=== PATIENT | female | born 1940 ===

== ENCOUNTER 2024-04-23 12:45 | Inpatient (IN) | payer OTHER ==
[~2024-04-23] VITALS: Ht 152.4 cm; Wt 59.0 kg
[2024-04-23] MEDS ORDERED: DEXILANT60 MG PO (14:10)
[2024-04-23] MEDS ORDERED: PROZAC40 MG PO (14:10)
[2024-04-23] MEDS ORDERED: SYNTHROID50 MCG PO (14:10)
[2024-04-23] MEDS ORDERED: ROSUVASTATIN CA10 MG PO (14:11)
[2024-04-23] MEDS ORDERED: WELLBUTRIN SR150 MG PO (14:11)
[2024-04-23] MEDS ORDERED: NORVASC5 MG PO (14:11)
[2024-04-23] MEDS ORDERED: CLONAZEPAM1 MG PO (14:11)
[2024-04-23] MEDS ORDERED: RESTASIS MULTI5.5 ML OP (14:12)
[2024-04-23 14:19] VITALS: BP 126/83
[2024-05-03] MEDS ORDERED: CLONAZEPAM0.25 MG (10:56)
[2024-05-03] MEDS ORDERED: NORVASC2.5 MG (10:56)
[2024-05-03] MEDS ORDERED: CLINDAMYCIN PHOSPHATE 150 MG/ML (900mg) ONE (16:36)
[2024-05-03] MEDS ORDERED: GENTAMICIN SULFATE 40 MG/ML VIAL ONE (16:37)
[2024-05-03] MEDS ORDERED: DIPHENHYDRAMINE HCL 50 MG/ML VIAL 1ML ONE (20:23)
[2024-05-03] MEDS ORDERED: CIPROFLOXACIN IN 5 % DEXTROSE 400 MG/200 ML PIGGYBAG IV SCH (20:50)
[2024-05-03] MEDS ORDERED: FAMOTIDINE/PF 20 MG/2 ML VIAL IV SCH (21:00)
[2024-05-03] MEDS ORDERED: METRONIDAZOLE/SODIUM CHLORIDE 500 MG/100 ML PIGGYBACK IV SCH (21:00)
[2024-05-03 22:38] LABS: ABG PH 7.453 (7.35-7.45); ABG PO2 382.5 mmHg (80-100); ABG pCO2 31.1 mmHg (35-45); BASE EXCESS -1.5 mmol/l; BICARBONATE 21.3 mmol/l (23-25); Tco2 22.2 mmol/l
[2024-05-03] MEDS ORDERED: hydrALAZINE HCL 20 MG VIAL ONE (22:43)
[2024-05-03 22:47] LABS: allen test SATISFACTORY; o2 100 %; puncture site RADIAL LEFT
[2024-05-03] MEDS ORDERED: LABETALOL HCL 100 MG/20 ML ML IV STA (23:37)
[2024-05-03] MEDS ORDERED: FAMOTIDINE/PF 20 MG/10 ML SYRINGE IV STA (23:40)
[2024-05-03] MEDS ORDERED: ENALAPRILAT DIHYDRATE 1.25 MG/ML VIAL IV PRN (23:45)
[2024-05-03] MEDS ORDERED: MORPHINE SULFATE 4 MG/ML CARTRIDGE IV PRN (23:45)
[2024-05-04 00:25] LABS: HEMATOCRIT 41.6 % (36.0-45.00); HEMOGLOBIN 13.3 g/dL (12.0-15.00); MEAN CELL VOLUME 87.7 fL (80.00-100.00); MEAN CORPUSCULAR HEMOGLOBIN 27.9 pg (27.00-32.0); MEAN CORPUSCULAR HGB CONC 31.9 g/dl (32.0-36.0); PLATELET COUNT 253 K/uL (150-450); RED BLOOD COUNT 4.74 M/uL (4.00-6.00); RED CELL DISTRIBUTION WIDTH 16.4 % (11.5-14.5)
[2024-05-04 00:36] LABS: CREATININE SERUM 0.81 mg/dL (0.55-1.02); GFR 67.69; MAGNESIUM 1.9 mg/dL (1.8-2.4); PHOSPHOROUS 3.1 mg/dL (2.5-4.9); POTASSIUM 3.81 mEq/L (3.5-5.1)
[2024-05-04] MEDS ORDERED: LORazepam 2 MG/ML VIAL IV ONE (04:30)
[2024-05-04 07:28] LABS: HEMATOCRIT 36.8 % (36.0-45.00); HEMOGLOBIN 12.1 g/dL (12.0-15.00); MEAN CELL VOLUME 86.2 fL (80.00-100.00); MEAN CORPUSCULAR HEMOGLOBIN 28.4 pg (27.00-32.0); PLATELET COUNT 247 K/uL (150-450); RED BLOOD COUNT 4.27 M/uL (4.00-6.00); RED CELL DISTRIBUTION WIDTH 15.9 % (11.5-14.5)
[2024-05-04 08:15] LABS: CREATININE SERUM 0.88 mg/dL (0.55-1.02); GFR 61.52; MAGNESIUM 1.9 mg/dL (1.8-2.4); PHOSPHOROUS 2.6 mg/dL (2.5-4.9); POTASSIUM 4.11 mEq/L (3.5-5.1); TSH 1.07 uIU/mL (0.358-3.74)
[2024-05-04] MEDS ORDERED: POLYVINYL ALCOHOL 15 ML DROPS OP SCH (09:00)
[2024-05-04] MEDS ORDERED: CHLORHEXIDINE GLUCONATE 15ML BRUSH KIT MM SCH (09:00)
[2024-05-04 10:36] LABS: ABG PH 7.525 (7.35-7.45); ABG PO2 159.1 mmHg (80-100); BASE EXCESS -0.1 mmol/l; SaO2 99.6 %
[2024-05-04 10:37] LABS: Tco2 21.8 mmol/l; allen test SATISFACTORY; o2 40 %; puncture site RADIAL RIGHT
[2024-05-04] MEDS ORDERED: RINGERS SOLUTION,LACTATED 1,000 ML IV SCH (12:30)
[2024-05-04 12:50] LABS: ABG PH 7.418 (7.35-7.45); ABG PO2 156.4 mmHg (80-100); ABG pCO2 36.6 mmHg (35-45); BICARBONATE 23.1 mmol/l (23-25); SaO2 99.4 %; Tco2 24.2 mmol/l; allen test SATISFACTORY; o2 40 %; puncture site RADIAL RIGHT
[2024-05-04] MEDS ORDERED: RACEPINEPHRINE HCL 0.5 ML AMPUL IH ONE (13:00)
[2024-05-04 17:31] VITALS: BP 122/63; O2SAT 100
[2024-05-04] MEDS ORDERED: LEVALBUTEROL HCL 0.63 MG/3 ML SOLUTION IH SCH (18:00)
[2024-05-04] MEDS ORDERED: ENOXAPARIN SODIUM 40 MG/0.4 ML SYRINGE SUBCUTANEO SCH (21:50)
[2024-05-05] VITALS: BP 140/63; O2SAT 100
[2024-05-05] MEDS ORDERED: LEVOTHYROXINE SODIUM 50 MCG TABLET PO SCH (06:00)
[2024-05-05 07:46] LABS: HEMATOCRIT 33.1 % (36.0-45.00); MEAN CELL VOLUME 85.8 fL (80.00-100.00); MEAN CORPUSCULAR HEMOGLOBIN 28.4 pg (27.00-32.0); MEAN CORPUSCULAR HGB CONC 33.1 g/dl (32.0-36.0); PLATELET COUNT 191 K/uL (150-450); RED BLOOD COUNT 3.86 M/uL (4.00-6.00); RED CELL DISTRIBUTION WIDTH 16.5 % (11.5-14.5)
[2024-05-05 08:00] VITALS: BP 148/76; O2SAT 99
[2024-05-05 08:02] LABS: CALCIUM 8.2 mg/dL (8.5-10.1); CREATININE SERUM 0.83 mg/dL (0.55-1.02); GFR 65.81; MAGNESIUM 2.1 mg/dL (1.8-2.4); PHOSPHOROUS 3.1 mg/dL (2.5-4.9); POTASSIUM 3.75 mEq/L (3.5-5.1)
[2024-05-05] MEDS ORDERED: AMLODIPINE BESYLATE 5 MG TABLET PO SCH (09:00)
[2024-05-05] MEDS ORDERED: ACETAMINOPHEN 500 MG GEL..CAP PO STA (12:53)
[2024-05-05] MEDS ORDERED: ACETAMINOPHEN 500 MG GEL..CAP PO PRN (13:00)
[2024-05-05] MEDS ORDERED: FLUOXETINE HCL 20 MG CAPSULE PO NR (14:00)
[2024-05-05 16:44] VITALS: BP 145/69; O2SAT 94
[2024-05-05] MEDS ORDERED: CLONAZEPAM 0.5 MG TABLET PO SCH (21:00)
[2024-05-06] VITALS: BP 124/58; O2SAT 97
[2024-05-06 00:51] VITALS: O2SAT 97
[2024-05-06 08:00] VITALS: BP 127/77; O2SAT 95
[2024-05-06] MEDS ORDERED: FLUOXETINE HCL 20 MG CAPSULE PO SCH (09:00)
== END 2024-05-06 09:58 | disposition home or self-care (01) | DRG 326 ==
LOC: SURH 04-29 08:30 → O/R 05-03 06:29 → SURH 05-04 14:00
PROVIDERS: Anesthesiology Pain Medicine; Internal Medicine; Internal Medicine Geriatric Medicine; ADMIT Surgery; ATTEND Surgery
PROC: 8E0W4CZ Robotic Assisted Procedure of Trunk Region, Percutaneous Endoscopic Approach (ICD-10-PCS; 2024-05-03)
PROC: 0BH17EZ Insertion of Endotracheal Airway into Trachea, Via Natural or Artificial Opening (ICD-10-PCS; 2024-05-03)
PROC: 5A1935Z Respiratory Ventilation, Less than 24 Consecutive Hours (ICD-10-PCS; 2024-05-03)
PROC: 0BH17EZ Insertion of Endotracheal Airway into Trachea, Via Natural or Artificial Opening (ICD-10-PCS; 2024-05-03)
PROC: 0BQT4ZZ Repair Diaphragm, Percutaneous Endoscopic Approach (ICD-10-PCS; principal; 2024-05-03 08:30)
PROC: BB24ZZZ Computerized Tomography (CT Scan) of Bilateral Lungs (ICD-10-PCS; 2024-05-04)
PROC: BW2FYZZ Computerized Tomography (CT Scan) of Neck using Other Contrast (ICD-10-PCS; 2024-05-04)
PROC: 3E0F7GC Introduction of Other Therapeutic Substance into Respiratory Tract, Via Natural or Artificial Opening (ICD-10-PCS; 2024-05-04)
PROC: 4A12X4Z Monitoring of Cardiac Electrical Activity, External Approach (ICD-10-PCS; 2024-05-04)
DX: K44.9 Diaphragmatic hernia without obstruction or gangrene (principal); J95.821 Acute postprocedural respiratory failure; T79.7XXA Traumatic subcutaneous emphysema, initial encounter; I10 Essential (primary) hypertension; E03.9 Hypothyroidism, unspecified; Y65.8 Other specified misadventures during surgical and medical care; Y92.230 Patient room in hospital as the place of occurrence of the external cause
CPT/HCPCS: 43281; 93228; 71250; 70491; 31500; 94002; 94640; S2900; 240